=== PATIENT | female | born 1985 | race Caucasian/White ===

== ENCOUNTER 2017-12-02 05:59 | Day surgery (SDC) | payer OTHER ==
[2017-12-02] MEDS: BUPIVACAINE 0.5%/EPI 1:200,000 50 ML (MDV) INJ
[~2017-12-02 05:59] MED LIST: CEFAZOLIN 2 GM/50 ML (PMX) 50 ML IVPB
[2017-12-02] MEDS ORDERED: BUPIVACAINE 0.5%/EPI (SDV) 30 ML INJ (06:59)
[2017-12-02 07:16] LABS: ADD MAN DIFF? NO
[2017-12-02 07:27] LABS: BASOPHILS % 0.5 % (0.0-2.0); EOSINOPHILS # 0.1 10^3/ul (0.0-0.5); EOSINOPHILS % 1.6 % (0.0-7.0); HEMATOCRIT 37.4 % (37.0-47.0); LYMPHOCYTES # 2.3 10^3/ul (0.8-2.9); LYMPHOCYTES % 30.8 % (15.0-51.0); MEAN CORPUSCULAR HEMOGLOBIN 29.3 pg (29.0-33.0); MEAN CORPUSCULAR HGB CONC 32.1 g/dl (32.0-37.0); MEAN CORPUSCULAR VOLUME 91.4 fl (82.0-101.0); MONOCYTE # 0.5 10^3/ul (0.3-0.9); MONOCYTES % 7.1 % (0.0-11.0); NEUTROPHIL # 4.5 10^3/ul (1.6-7.5); NEUTROPHILS % 59.6 % (39.0-77.0); PLATELET COUNT 229 10^3/UL (140-415); RED BLOOD COUNT 4.09 10^6/ul (4.20-5.40); RED CELL DISTRIBUTION WIDTH 12.5 % (11.5-14.5)
[2017-12-02 07:27] LABS: WHITE BLOOD COUNT 7.6 10^3/ul (4.8-10.8)
[2017-12-02 07:40] LABS: INR 0.95; PROTIME 12.8 Sec (11.9-14.9)
[2017-12-02 07:41] LABS: PARTIAL THROMBOPLASTIN TIME 29.2 Sec (25.0-35.0)
[2017-12-02 07:51] LABS: ALANINE AMINOTRANSFERASE 42 IU/L (13-69); ALBUMIN/GLOBULIN RATIO 1.51; ALKALINE PHOSPHATASE 52 IU/L (42-121); ANION GAP 17 (8-16); ASPARTATE AMINO TRANSFERASE 40 IU/L (15-46); BILIRUBIN,INDIRECT 0.7 mg/dl (0-1.1); BILIRUBIN,TOTAL 0.7 mg/dl (0.2-1.3); BLOOD UREA NITROGEN 9 mg/dl (7-20); CALCIUM 9.5 mg/dl (8.4-10.2); CARBON DIOXIDE 22 mmol/L (21-31); CHLORIDE 107 mmol/L (97-110); CREATININE 0.56 mg/dl (0.44-1.00); GLUCOSE 99 mg/dl (70-220); POTASSIUM 4.2 mmol/L (3.5-5.1); SODIUM 142 mmol/L (135-144); TOTAL PROTEIN 8.3 g/dl (6.1-8.1)
[2017-12-02] MEDS ORDERED: MIDAZOLAM 1 MG/ML 2 ML INJ (07:59)
[2017-12-02] MEDS ORDERED: GLYCOPYRROLATE 0.4 MG INJ (10:22)
[2017-12-02] MEDS ORDERED: PROPOFOL 20 ML (10:22)
[2017-12-02] MEDS ORDERED: ROCURONIUM 50 MG INJ ×2 (10:22→10:23)
[2017-12-02] MEDS ORDERED: LIDOCAINE 2% (SDV) 5 ML INJ (10:22)
[2017-12-02] MEDS ORDERED: NEOSTIGMINE 3 MG/3 ML SYRINGE (10:22)
[2017-12-02] MEDS ORDERED: ONDANSETRON 4 MG INJ ×2 (10:23→11:08)
[2017-12-02] MEDS ORDERED: CEFAZOLIN 1 GM INJ (10:39)
[2017-12-02] MEDS ORDERED: morphine 10 MG INJ (10:40)
[2017-12-02] MEDS ORDERED: HYDROmorphONE 1 MG/ML SYG (10:56)
[2017-12-02] MEDS ORDERED: FENTAnyl 50 MCG/ML VIAL IV (11:00)
[2017-12-02] MEDS ORDERED: DIPHENHYDRAMINE 50 MG INJ IV (11:00)
[2017-12-02] MEDS ORDERED: MEPERIDINE 25 MG INJ (11:25)
[2017-12-02] MEDS: HYDROmorphONE 1 MG/5 ML IV SYRINGE IV ×3 (11:36→11:40)
[2017-12-02] MEDS: ONDANSETRON 4 MG INJ IV (11:39)
[2017-12-02] MEDS: MEPERIDINE 25 MG INJ IV (11:41)
[2017-12-02 13:25] LABS: ADD MAN DIFF? NO
[2017-12-02 13:26] LABS: BASOPHILS % 0.1 % (0.0-2.0); HEMATOCRIT 31.4 % (37.0-47.0); HEMOGLOBIN 10.3 g/dl (12.0-16.0); LYMPHOCYTES # 0.6 10^3/ul (0.8-2.9); LYMPHOCYTES % 4.3 % (15.0-51.0); MEAN CORPUSCULAR HEMOGLOBIN 30.7 pg (29.0-33.0); MEAN CORPUSCULAR HGB CONC 32.8 g/dl (32.0-37.0); MEAN CORPUSCULAR VOLUME 93.5 fl (82.0-101.0); MEAN PLATELET VOLUME 10.6 fl (7.4-10.4); MONOCYTE # 0.6 10^3/ul (0.3-0.9); MONOCYTES % 4.2 % (0.0-11.0); NEUTROPHIL # 13.2 10^3/ul (1.6-7.5); PLATELET COUNT 191 10^3/UL (140-415); RED BLOOD COUNT 3.36 10^6/ul (4.20-5.40); RED CELL DISTRIBUTION WIDTH 12.4 % (11.5-14.5)
[2017-12-02 13:26] LABS: WHITE BLOOD COUNT 14.5 10^3/ul (4.8-10.8)
[2017-12-02 13:34] LABS: HOLD TRANSMISSIONS 1
[2017-12-02] MEDS: METOCLOPRAMIDE 10 MG INJ IV (15:05)
== END 2017-12-02 17:20 | disposition home or self-care (01) ==
LOC: SDS 05:59
DX: N83.12 Corpus luteum cyst of left ovary (principal)
CPT/HCPCS: 49322; 80053; 84703; 85025; 85610; 85730; 86850; 86900; 86901; 93005